=== PATIENT | male | born 1950 | race Two or more races ===

== ENCOUNTER → 2020-06-29 17:22 | Outpatient (CLI) | payer OTHER | END | disposition home or self-care (01) | LOC: LAB 17:22 | PROVIDERS: ATTEND Urology | DX: R97.20 Elevated prostate specific antigen [PSA] (principal); B96.29 Other Escherichia coli [E. coli] as the cause of diseases classified elsewhere ==

== ENCOUNTER 2020-07-14 07:26 | Outpatient (CLI) | payer OTHER | END 2020-07-14 07:36 | disposition home or self-care (01) | LOC: SONOGRAMA 07:26 | PROVIDERS: ATTEND Urology | DX: C61 Malignant neoplasm of prostate (principal); R97.20 Elevated prostate specific antigen [PSA]; D29.1 Benign neoplasm of prostate ==

== ENCOUNTER → 2021-07-19 14:07 | Outpatient (CLI) | payer OTHER | END | disposition home or self-care (01) | LOC: LAB 14:07 | PROVIDERS: ATTEND Urology | DX: R97.20 Elevated prostate specific antigen [PSA] (principal) ==

== ENCOUNTER 2021-07-29 07:32 | Outpatient (CLI) | payer OTHER | END 2021-07-29 08:15 | disposition home or self-care (01) | LOC: SONOGRAMA 07:32 | PROVIDERS: ATTEND Urology | DX: C61 Malignant neoplasm of prostate (principal); D29.1 Benign neoplasm of prostate; R97.20 Elevated prostate specific antigen [PSA] ==